=== PATIENT | male | born 1995 | race Caucasian/White ===

== ENCOUNTER 2018-03-02 20:31 | Inpatient (IN) | payer OTHER ==
[2018-03-02] MEDS: SOD CHLORIDE 0.9% 1,000 ML IV (23:07)
[2018-03-02] MEDS: morphine 4 MG/ML VIAL IV (23:07)
[2018-03-02] MEDS: ONDANSETRON 4 MG INJ IV (23:07)
[2018-03-02 23:16] LABS: ADD MAN DIFF? NO
[2018-03-02 23:19] LABS: WHITE BLOOD COUNT 15.5 10^3/ul (4.8-10.8)
[2018-03-02 23:19] LABS: BASOPHIL # 0.1 10^3/ul (0.0-0.1); BASOPHILS % 0.3 % (0.0-2.0); EOSINOPHILS # 0.1 10^3/ul (0.0-0.5); EOSINOPHILS % 0.4 % (0.0-7.0); HEMATOCRIT 44.7 % (42.0-52.0); HEMOGLOBIN 15.2 g/dl (14.0-18.0); LYMPHOCYTES # 1.6 10^3/ul (0.8-2.9); LYMPHOCYTES % 10.2 % (15.0-51.0); MEAN CORPUSCULAR HEMOGLOBIN 28.9 pg (29.0-33.0); MEAN PLATELET VOLUME 10.3 fl (7.4-10.4); MONOCYTE # 1.3 10^3/ul (0.3-0.9); MONOCYTES % 8.4 % (0.0-11.0); NEUTROPHIL # 12.4 10^3/ul (1.6-7.5); NEUTROPHILS % 80.1 % (39.0-77.0); PLATELET COUNT 232 10^3/UL (140-415); RED BLOOD COUNT 5.26 10^6/ul (4.70-6.10); RED CELL DISTRIBUTION WIDTH 12.9 % (11.5-14.5)
[2018-03-02 23:48] LABS: ALANINE AMINOTRANSFERASE 32 IU/L (13-69); ALBUMIN 4.6 g/dl (3.3-4.9); ALBUMIN/GLOBULIN RATIO 1.43; ALKALINE PHOSPHATASE 75 IU/L (42-121); ANION GAP 17 (8-16); ASPARTATE AMINO TRANSFERASE 23 IU/L (15-46); BILIRUBIN,INDIRECT 0.9 mg/dl (0-1.1); BILIRUBIN,TOTAL 0.9 mg/dl (0.2-1.3); BLOOD UREA NITROGEN 9 mg/dl (7-20); CALCIUM 9.5 mg/dl (8.4-10.2); CARBON DIOXIDE 31 mmol/L (21-31); CHLORIDE 98 mmol/L (97-110); CREATININE 0.77 mg/dl (0.61-1.24); GLUCOSE 111 mg/dl (70-220); LIPASE 30 U/L (23-300); POTASSIUM 3.5 mmol/L (3.5-5.1); SODIUM 142 mmol/L (135-144); TOTAL PROTEIN 7.8 g/dl (6.1-8.1)
[2018-03-02 23:49] LABS: ADD UMIC YES; UR ASCORBIC ACID NEGATIVE (NEGATIVE); UR BILIRUBIN (Dip) NEGATIVE (NEGATIVE); UR BLOOD (Dip) 1+ mg/dL (NEGATIVE); UR CLARITY CLEAR (CLEAR); UR COLOR YELLOW (YELLOW); UR GLUCOSE (Dip) NEGATIVE (NEGATIVE); UR KETONES (Dip) NEGATIVE (NEGATIVE); UR LEUKOCYTE ESTERASE (Dip) NEGATIVE Leu/ul (NEGATIVE); UR NITRITE (Dip) NEGATIVE (NEGATIVE); UR RBC 1 /HPF (0-5); UR SPECIFIC GRAVITY (Dip) 1.016 (1.003-1.030); UR TOTAL PROTEIN (Dip) NEGATIVE (NEGATIVE); UR UROBILINOGEN (Dip) 1+ mg/dL (NEGATIVE); UR WBC 0 /HPF (0-5)
[2018-03-03] MEDS: LACTATED RINGER'S 500 ML IV (02:30)
[2018-03-03] MEDS: CEFTRIAXONE 1 GM/50 ML (PMX) 50 ML IVPB (03:43)
[2018-03-03] MEDS: metroNIDAZOLE 500 MG/NS (PMX) 100 ML IVPB (04:14)
[2018-03-03] MEDS ORDERED: NACL 0.9% 3 ML SYG IV (05:30)
[2018-03-03] MEDS ORDERED: DOCUSATE SODIUM 100 MG CAP PO (05:30)
[2018-03-03] MEDS ORDERED: ONDANSETRON 4 MG INJ IV ×3 (05:30→16:30)
[2018-03-03] MEDS ORDERED: MAGNESIUM HYDROXIDE 30ML CUP PO (05:30)
[2018-03-03] MEDS ORDERED: ACETAMINOPHEN 325 MG TAB PO (05:30)
[2018-03-03] MEDS: D5-NS + KCL 20 MEQ 1,000 ML IV ×3 (06:10→18:13)
[2018-03-03 06:18] LABS: INR 1.09; PROTIME 14.3 Sec (11.9-14.9); PT RATIO 1.1
[2018-03-03 06:21] LABS: ANION GAP 15 (8-16); BLOOD UREA NITROGEN 8 mg/dl (7-20); CARBON DIOXIDE 32 mmol/L (21-31); CHLORIDE 102 mmol/L (97-110); GLUCOSE 105 mg/dl (70-220); POTASSIUM 3.7 mmol/L (3.5-5.1); SODIUM 145 mmol/L (135-144)
[2018-03-03] MEDS: FAMOTIDINE 20 MG INJ IV ×2 (08:11→22:24)
[2018-03-03] MEDS ORDERED: morphine 4 MG/ML VIAL IV (08:30)
[2018-03-03] MEDS: AMPICILLIN/SULB 1.5GM/NS (PMX) 50 ML IVPB ×3 (08:35→15:15)
[2018-03-03] MEDS ORDERED: MIDAZOLAM 1 MG/ML 2 ML INJ ×2 (15:19→16:34)
[2018-03-03] MEDS ORDERED: ROCURONIUM 50 MG INJ ×2 (15:19→16:01)
[2018-03-03] MEDS ORDERED: PROPOFOL 20 ML (15:19)
[2018-03-03] MEDS ORDERED: ONDANSETRON 4 MG INJ (15:20)
[2018-03-03] MEDS ORDERED: METOCLOPRAMIDE 10 MG INJ (15:20)
[2018-03-03] MEDS ORDERED: ROPIVACAINE 0.5 % 30 ML VIAL (15:20)
[2018-03-03] MEDS ORDERED: KETOROLAC 30 MG INJ (15:20)
[2018-03-03] MEDS ORDERED: MEPERIDINE 25 MG INJ IV (16:00)
[2018-03-03] MEDS ORDERED: HYDROmorphONE (0.2 MG/ML) 10ML SYG IV ×3 (16:00)
[2018-03-03] MEDS ORDERED: DIPHENHYDRAMINE 50 MG INJ IV (16:00)
[2018-03-03] MEDS: BUPIVACAINE 0.25%/EPI (MDV) 50 ML VIAL INJ (16:05)
[2018-03-03] MEDS ORDERED: morphine 2 MG INJ IV (16:30)
[2018-03-03] MEDS ORDERED: OXYCODONE/ACETAMINOPHEN (5/325) TAB PO ×2 (16:30)
[2018-03-03] MEDS: MIDAZOLAM 1 MG/ML 2 ML INJ IV (17:13)
[2018-03-03] MEDS: HYDROCODONE/APAP (5/325) TAB PO (22:24)
[2018-03-04] MEDS: AMPICILLIN/SULB 1.5GM/NS (PMX) 50 ML IVPB ×3 (03:26→15:00)
[2018-03-04 05:49] LABS: ADD MAN DIFF? NO
[2018-03-04 06:07] LABS: BASOPHILS % 0.4 % (0.0-2.0); EOSINOPHILS # 0.1 10^3/ul (0.0-0.5); HEMATOCRIT 40.9 % (42.0-52.0); HEMOGLOBIN 13.4 g/dl (14.0-18.0); LYMPHOCYTES # 1.4 10^3/ul (0.8-2.9); LYMPHOCYTES % 17.5 % (15.0-51.0); MEAN CORPUSCULAR HEMOGLOBIN 28.7 pg (29.0-33.0); MEAN CORPUSCULAR HGB CONC 32.8 g/dl (32.0-37.0); MEAN CORPUSCULAR VOLUME 87.6 fl (82.0-101.0); MEAN PLATELET VOLUME 10.6 fl (7.4-10.4); MONOCYTE # 0.8 10^3/ul (0.3-0.9); MONOCYTES % 9.8 % (0.0-11.0); NEUTROPHIL # 5.8 10^3/ul (1.6-7.5); NEUTROPHILS % 70.4 % (39.0-77.0); PLATELET COUNT 220 10^3/UL (140-415); RED BLOOD COUNT 4.67 10^6/ul (4.70-6.10); RED CELL DISTRIBUTION WIDTH 13.1 % (11.5-14.5)
[2018-03-04 06:07] LABS: WHITE BLOOD COUNT 8.2 10^3/ul (4.8-10.8)
[2018-03-04] MEDS: D5-NS + KCL 20 MEQ 1,000 ML IV (06:17)
[2018-03-04 06:28] LABS: ANION GAP 12 (8-16); BLOOD UREA NITROGEN 6 mg/dl (7-20); CALCIUM 8.9 mg/dl (8.4-10.2); CARBON DIOXIDE 30 mmol/L (21-31); CHLORIDE 107 mmol/L (97-110); CREATININE 0.79 mg/dl (0.61-1.24); GLUCOSE 104 mg/dl (70-220); POTASSIUM 4.3 mmol/L (3.5-5.1); SODIUM 145 mmol/L (135-144)
[2018-03-04 06:41] LABS: HEMOGLOBIN A1C 5.1 % (0-5.9)
[2018-03-04] MEDS: FAMOTIDINE 20 MG INJ IV (08:44)
[2018-03-04] MEDS ORDERED: morphine LIQ (10 MG/5 ML) CUP PO (15:10)
== END 2018-03-04 15:10 | disposition home or self-care (01) | DRG 853 ==
LOC: MS2 03-03 08:42 → FTE 20:31 → MS2 03-03 05:03
PROC: 0DTJ4ZZ Resection of Appendix, Percutaneous Endoscopic Approach (ICD-10-PCS; principal; 2018-03-03 15:33)
DX: A41.9 Sepsis, unspecified organism (principal); K35.3 Acute appendicitis with localized peritonitis
CPT/HCPCS: 74176; 80048; 80053; 81001; 83036; 83690; 84443; 85025; 85610; 88304